=== PATIENT | male | born 1950 | race Caucasian/White ===

== ENCOUNTER → 2019-01-20 | Outpatient (CLI) | payer MEDICARE, OTHER ==
[~2019-01-20] MED LIST: LEVSOD137 PO
== END | disposition home or self-care (01) ==
LOC: LAB SHORT 11:10 → PLD 11:10
DX: D48.5 Neoplasm of uncertain behavior of skin (principal)
CPT/HCPCS: 88305

== ENCOUNTER 2019-05-04 11:53 | Day surgery (SDC) | payer MEDICARE, OTHER ==
[~2019-05-04] VITALS: Ht 188 cm; Wt 107.7 kg
[~2019-05-04 11:53] MED LIST changes: +VITAMIN D35000 UNIT PO
--- NOTE | 2019-05-04 14:04 | NUR ---
05/04/19 1404 Izzy Velázquez 1356 PT. STARTED RETCHING, PT. SUCTIONED FOR SMALL AMT. CLEAR SECRETIONS, ZOFRAN GIVEN PER DR. TRINH. PT. STOPPED RETCHING 0478.
== END 2019-05-04 14:40 | disposition home or self-care (01) ==
LOC: ORSCSDS 11:53
PROVIDERS: Surgery
PROC: 0DJD8ZZ Inspection of Lower Intestinal Tract, Via Natural or Artificial Opening Endoscopic (ICD-10-PCS; principal; 2019-05-04 13:00)
DX: Z12.11 Encounter for screening for malignant neoplasm of colon (principal); Z86.010 Personal history of colon polyps; E03.9 Hypothyroidism, unspecified; Z79.899 Other long term (current) drug therapy
CPT/HCPCS: J2405; J2704; J7120

== ENCOUNTER → 2019-08-04 | Outpatient (CLI) | payer MEDICARE, OTHER | END | disposition home or self-care (01) | LOC: LAB SHORT 11:28 → PLD 11:28 | DX: C44.311 Basal cell carcinoma of skin of nose (principal) | CPT/HCPCS: 88305 ==